=== PATIENT | female | born 1955 | race Caucasian/White ===

== ENCOUNTER 2023-05-10 17:12 | Emergency (ER) | payer OTHER ==
[~2023-05-10] VITALS: Ht 152.4 cm; Wt 47.2 kg
[2023-05-10 17:13] VITALS: BP 178/97; PULSE 73; RESP 16; TEMP 97.2; O2SAT 100
[2023-05-10] MEDS ORDERED: BACTO TP (17:40)
[2023-05-10] MEDS ORDERED: CHLO473S62 PO (17:40)
[2023-05-10 17:57] VITALS: BP 158/82; PULSE 77; RESP 12; TEMP 98; O2SAT 100
== END 2023-05-10 17:57 | disposition home or self-care (01) ==
LOC: MED 17:12
DX: S01.511A Laceration without foreign body of lip, initial encounter (principal); R03.0 Elevated blood-pressure reading, without diagnosis of hypertension; Z79.899 Other long term (current) drug therapy; W01.198A Fall on same level from slipping, tripping and stumbling with subsequent striking against other object, initial encounter; Y92.89 Other specified places as the place of occurrence of the external cause; Y93.89 Activity, other specified; Y99.8 Other external cause status
CPT/HCPCS: 99283